=== PATIENT | male | born 1990 | race Two or more races ===

== ENCOUNTER 2016-11-11 16:31 | Emergency (ER) | payer OTHER | END 2016-11-11 18:10 | disposition home or self-care (01) | LOC: ED 16:31 | DX: F07.81 Postconcussional syndrome (principal); G44.309 Post-traumatic headache, unspecified, not intractable; M25.561 Pain in right knee; M25.562 Pain in left knee; W22.8XXA Striking against or struck by other objects, initial encounter; Y92.812 Truck as the place of occurrence of the external cause ==